=== PATIENT | male | born 1955 | race Caucasian/White ===

== ENCOUNTER 2020-04-03 03:39 | Emergency (ER) | payer OTHER ==
[~2020-04-03] VITALS: Ht 190.5 cm; Wt 113.4 kg
[2020-04-03] MEDS ORDERED: FLECTOR1 EACH (04:01)
== END 2020-04-03 13:34 | disposition home or self-care (01) ==
LOC: ER 03:39
DX: K52.9 Noninfective gastroenteritis and colitis, unspecified (principal); R53.81 Other malaise

== ENCOUNTER 2021-08-06 23:39 | Emergency (ER) | payer OTHER ==
[~2021-08-06] VITALS: Ht 190.5 cm; Wt 95.3 kg
[~2021-08-06 23:39] MED LIST: FLECTOR1 EACH
[2021-08-06] MEDS ORDERED: NEURONTIN300 MG PO (23:54)
[2021-08-07] MEDS ORDERED: LEVSIN/SL0.125 MG SL (06:12)
[2021-08-07] MEDS ORDERED: CIPRO500 MG PO (06:12)
== END 2021-08-07 06:17 ==
LOC: ER 23:39
DX: R10.84 Generalized abdominal pain (principal)

== ENCOUNTER 2023-08-31 22:13 | Emergency (ER) | payer OTHER ==
[~2023-08-31] VITALS: Ht 177.8 cm; Wt 97.5 kg
[~2023-08-31 22:13] MED LIST changes: +CIPRO500 MG PO; +LEVSIN/SL0.125 MG SL; +NEURONTIN300 MG PO; +SILDENAFIL CIT100 MG PO; +TESTOSTERO200 MG/11 IM
[2023-08-31] MEDS ORDERED: TESTIM5 GM (22:33)
[2023-09-01 02:34] LABS: HEMATOCRIT 50.7 % (39.0-48.0); HEMOGLOBIN 17.3 g/dL (13-16.00); MEAN CELL VOLUME 87.7 fL (80.0-100.00); MEAN CORPUSCULAR HGB CONC 34.2 g/dl (32.0-36.0); PLATELET COUNT 205 K/uL (150-450); RED BLOOD COUNT 5.78 M/uL (4.00-6.00); RED CELL DISTRIBUTION WIDTH 18.4 % (11.5-14.5)
[2023-09-01 02:57] LABS: CALCIUM 9.2 mg/dL (8.5-10.1); CREATININE SERUM 0.96 mg/dL (0.70-1.30); GFR 77.89; POTASSIUM 3.82 mEq/L (3.5-5.1)
== END 2023-09-01 05:53 | disposition home or self-care (01) ==
LOC: ER 22:14
PROVIDERS: General Practice
DX: R53.1 Weakness (principal)

== ENCOUNTER 2024-03-04 13:59 | Emergency (ER) | payer OTHER ==
[~2024-03-04] VITALS: Ht 190.5 cm; Wt 95.3 kg
[~2024-03-04 13:59] MED LIST changes: +TESTIM5 GM
[2024-03-04 17:24] LABS: HEMATOCRIT 47.8 % (39.0-48.0); HEMOGLOBIN 16.2 g/dL (13-16.00); MEAN CELL VOLUME 86.8 fL (80.0-100.00); MEAN CORPUSCULAR HEMOGLOBIN 29.5 pg (27.00-32.0); MEAN CORPUSCULAR HGB CONC 33.9 g/dl (32.0-36.0); PLATELET COUNT 157 K/uL (150-450); RED BLOOD COUNT 5.51 M/uL (4.00-6.00); RED CELL DISTRIBUTION WIDTH 15.8 % (11.5-14.5)
[2024-03-04 17:43] LABS: URINE APPEARANCE Clear; URINE BILIRRUBIN Negative (NEGATIVE); URINE BLOOD Negative; URINE COLOR Yellow; URINE GLUCOSE Negative (NEGATIVE); URINE KETONE Negative (NEGATIVE); URINE LEUKOCYTE Negative; URINE NITRATE Negative; URINE PROTEIN Negative (NEGATIVE)
[2024-03-04 17:47] LABS: URINE WBC 2.7 uL (0.0-23.2)
[2024-03-04 17:48] LABS: CALCIUM 9.4 mg/dL (8.5-10.1); CREATININE SERUM 1.05 mg/dL (0.70-1.30); GFR 70.03; POTASSIUM 4.49 mEq/L (3.5-5.1)
[2024-03-04 17:52] LABS: URINE BACTERIA 1.2 uL (0.0-1933); URINE EPITHELIAL CELLS 0.6 uL (0.0-38.8); URINE RBC 0.9 uL (0.0-20.8)
== END 2024-03-04 19:48 | disposition home or self-care (01) ==
LOC: ER 14:01
PROVIDERS: Nurse Practitioner Family
DX: B34.9 Viral infection, unspecified (principal); R68.83 Chills (without fever); R53.81 Other malaise; Z20.822 Contact with and (suspected) exposure to COVID-19

== ENCOUNTER → 2024-03-08 | Emergency (ER) | payer OTHER | END | disposition left against medical advice (07) | LOC: ER 22:53 | DX: Z53.21 Procedure and treatment not carried out due to patient leaving prior to being seen by health care provider (principal) ==

== ENCOUNTER 2025-05-04 21:33 | Emergency (ER) | payer OTHER ==
[~2025-05-04] VITALS: Ht 190.5 cm; Wt 97.5 kg
[2025-05-04] MEDS ORDERED: MULTIVIT INFUSN,ADULT 4,VIT K 10 ML VIAL IV STA (23:18)
[2025-05-04] MEDS ORDERED: SODIUM CL 0.9% 25 ML IV.SOLN. IV STA (23:18)
[2025-05-04] MEDS ORDERED: DEXAMETHASONE SODIUM PHOSPHATE 4 MG/ML VIAL IV STA (23:18)
[2025-05-04] MEDS ORDERED: FAMOtidine 10 MG/ML (4ML VIAL) IV STA (23:30)
[2025-05-05] MEDS ORDERED: DEXAMETHASONE SODIUM PHOSPHATE 4 MG/ML VIAL ONE (00:21)
[2025-05-05] MEDS ORDERED: FAMOTIDINE/PF 20 MG/2 ML VIAL ONE (00:21)
[2025-05-05 01:54] LABS: COVID-19 AG NEGATIVE (NEGATIVE)
[2025-05-05 02:24] LABS: BASO % 1.0 % (0.1-1.2); EOS # 0.26 (0.04-0.54); EOS % 3.8 % (0.7-7.0); LYMPH # 0.73 (1.18-3.74); LYMPH % 10.8 % (19.3-53.1); MEAN PLATELET VOLUME 10.30 fl (9.4-12.4); MONO # 0.83 (0.24-0.82); NEUT # 4.87 (1.56-6.13); NEUT % 72.0 % (34.0-71.1); RED CELL DISTRIBUTION WIDTH 13.0 % (11.6-14.4)
[2025-05-05 02:26] LABS: MONO % 12.3 % (4.7-12.5)
[2025-05-05 02:46] LABS: BUN CREA RATIO 15.0 (7.0-25.0); CREATININE SERUM 0.92 mg/dL (0.70-1.30); GFR 81.33; GLUCOSE FASTING 107.0 mg/dL (65-100); OSMOLALITY SERUM 280.0 MOSM/KG (275-295)
[2025-05-05 02:51] LABS: ERYTHROCYTE SEDIMENTATION RATE 4 mm/hr (0-20)
[2025-05-05 04:00] LABS: URINE APPEARANCE Clear; URINE BILIRRUBIN Negative (NEGATIVE); URINE BLOOD Negative; URINE COLOR Yellow; URINE GLUCOSE Negative (NEGATIVE); URINE KETONE Negative (NEGATIVE); URINE LEUKOCYTE Negative; URINE NITRATE Negative; URINE PROTEIN Negative (NEGATIVE); URINE UROBILINOGEN 1.0 E.U./dl
[2025-05-05 04:04] LABS: URINE WBC 2.1 uL (0.0-23.2)
[2025-05-05 04:08] LABS: COCAINE NEGATIVE (NEGATIVE); METHADONE NEGATIVE (NEGATIVE); OPIATES NEGATIVE (NEGATIVE); THC ( Cannabinoids) NEGATIVE (NEGATIVE)
[2025-05-05 04:15] LABS: URINE BACTERIA 1.1 uL (0.0-1933); URINE CAST 0.00 uL (0.0-1.40); URINE EPITHELIAL CELLS 0.6 uL (0.0-38.8); URINE RBC 0.8 uL (0.0-20.8)
== END 2025-05-05 04:47 | disposition home or self-care (01) ==
LOC: ER 21:33
PROVIDERS: General Practice
DX: E86.0 Dehydration (principal); R53.1 Weakness; Z20.822 Contact with and (suspected) exposure to COVID-19
CPT/HCPCS: 36415; 71046; 93005; 96365; 99283; J3490; J7050